=== PATIENT | male | born 1950 | race African-American/Black ===

== ENCOUNTER 2025-08-17 17:28 | Emergency (ER) | payer SELFPAY ==
[~2025-08-17] VITALS: Ht 185.4 cm; Wt 97.0 kg
[~2025-08-17 17:28] MED LIST: CIPR-264; NAPR220C15; TAMS-54
[2025-08-17 17:31] VITALS: O2SAT 98
[2025-08-17] MEDS: GABAPENTIN 300MG CAPSULE PO ONE (18:20)
[2025-08-17] MEDS: KETOROLAC 30MG/ML VIAL IM ONE (18:21)
[2025-08-17 18:26] LABS: PLATELET 154 x1000/uL (130-400); RED BLOOD CELL COUNT 5.88 mill/uL (4.7-6.1); RED CELL DISTRIBUTION WIDTH 15.5 % (11.6-14.6)
[2025-08-17 18:38] LABS: CREATININE 1.2 mg/dL (0.6-1.3); UREA NITROGEN BLOOD 11 mg/dL (9-23)
[2025-08-17] MEDS ORDERED: GABA-529 MT (20:14)
[2025-08-17] MEDS ORDERED: IBUP-1455 MT (20:14)
[2025-08-17 20:48] VITALS: BP 153/104; PULSE 79; RESP 18; TEMP 36.8; O2SAT 98
== END 2025-08-17 20:55 | disposition home or self-care (01) ==
LOC: ER 17:28
DX: G62.9 Polyneuropathy, unspecified (principal); M54.30 Sciatica, unspecified side; I48.91 Unspecified atrial fibrillation; I10 Essential (primary) hypertension; Z55.6 Problems related to health literacy; Z79.899 Other long term (current) drug therapy
CPT/HCPCS: 99284; 80048; 85027; 36415; 96372; J1885